=== PATIENT | female | born 1965 | race Caucasian/White ===

== ENCOUNTER 2021-01-31 13:47 | Emergency (ER) | payer OTHER, SELFPAY ==
[2021-01-31] VITALS (11 sets, daily range): BP systolic 116–120; BP diastolic 78; PULSE 61–79; RESP 17–25; TEMP 36.5; O2SAT 95–99
--- NOTE | 2021-01-31 13:51 | DI.RAD.S_ITS ---
PROCEDURE: XR CHEST 1V INDICATIONS: chest pain TECHNIQUE: One view of the chest was acquired. COMPARISON: None. FINDINGS: Surgical changes and devices: Left CT injectable port a catheter tip overlying the cavoatrial region. Lungs and pleura: No consolidation, pleural effusions or pneumothorax. 1.7 cm nodular density right lower lung zone. Mediastinum: Mediastinal contours appear normal. Heart size is normal. Bones and chest wall: No suspicious bony lesions. Overlying soft tissues appear unremarkable. IMPRESSION: 1. Nodular density in the right lower lung zone, which may reflect a nipple shadow versus pulmonary nodule. Consider repeat chest radiograph with nipple markers versus CT. Dictated by: Cesar Paris M.D. on 01/31/2021 at 14:30 Approved by: Cesar Paris M.D. on 01/31/2021 at 14:32
[2021-01-31 13:59] LABS: Add Manual Diff / Slide Review NO; Basophils Absolute Auto 100 /uL (0-100); Basophils Percent Auto 0.9 % (0-2); Eosinophils Absolute Auto 600 /uL (0-450); Eosinophils Percent Auto 8.6 % (2-4); Hematocrit 37.6 % (36-46); Hemoglobin 12.8 g/dL (12.0-16.0); Lymphocytes Absolute Auto 900 /uL (1100-4500); Mean Corpuscular Hemoglobin 33.4 PG (26-34); Mean Corpuscular Volume 98.2 fL (80-100); Monocytes Absolute Auto 500 /uL (0-900); Monocytes Percent Auto 7.1 % (3-14); Neutrophils Absolute Auto 5200 /uL (1500-7000); Neutrophils Percent Auto 71.4 % (50-75); Platelet Count 176 X10^3/uL (150-400); Red Blood Cell Count 3.82 X10^6/uL (4.0-5.2); White Blood Cell Count 7.3 X10^3/uL (4.5-11.0)
--- NOTE | 2021-01-31 14:05 | PC.NURSE ---
Blood sugar 71, patient still feels dizzy. Drinking apple juice and tolerating well
[2021-01-31 14:08] LABS: Alanine Aminotransferase 63 IU/L (<35); Albumin 4.4 g/dL (3.5-5.0); Albumin Globulin Ratio 1.6 (1.0-2.8); Alkaline Phosphatase 153 U/L (38-126); Aspartate Aminotransferase 61 IU/L (14-36); BUN Creatinine Ratio 16.7 (6-22); Bilirubin Total 0.7 mg/dL (0.2-1.3); Blood Urea Nitrogen 17 mg/dL (7-17); Calcium 9.5 mg/dL (8.4-10.2); Carbon Dioxide 30 mmol/L (22-32); Chloride 104 mmol/L (98-107); Creatine Kinase 147 U/L (30-135); Estimated Glomerular Filt Rate 56.1 mL/min (>60); Globulin 2.7 g/dL (1.7-4.1); Glucose 68 mg/dL (70-100); HEMOLYSIS < 15 (0-50); Lipase 69 U/L (23-300); Sodium 141 mmol/L (137-145); Total Protein 7.1 g/dL (6.3-8.2)
--- NOTE | 2021-01-31 14:10 | PC.NURSE ---
Patient received radiation this morning in [place] drove up to [employer] for work. Patient had not eaten, which states is not abnormal for her. Patient administered her fast acting insulin, felt sudden drop in blood sugar, while attempting to eat. Patient called 911, vomited excessively. Patient had a syncopal episode. Patient alert and oriented on arrival to ER, reports dizziness. Basal pump paused at this time.
[2021-01-31 14:20] LABS: Troponin I < 0.012 ng/mL (0.01-0.034)
--- NOTE | 2021-01-31 14:23 | ED.GENADULT ---
HPI - General Adult General Chief complaint: Diabetic Problem Stated complaint: Syncope Time Seen by Provider: 01/31/21 14:19 Source: patient and EMS Mode of arrival: EMS Limitations: no limitations History of Present Illness HPI narrative: This is a 55-year-old female comes emergency department with complaint of hypoglycemic episode. Patient had radiation earlier today. She has been receiving radiation for breast cancer. She has completed her chemotherapy couple months ago. She does receive an infusion Q 3 weeks for immunotherapy with Herceptin and Perjeta. She has a history of dyslipidemia, insulin-dependent diabetes that started during a prior . She uses a fasting acting insulin in her pump. Today she had given herself a bolus of insulin and ordered food had a local restaurant. While she was waiting she started to feel dizzy, nauseated and then obtained her tried to eat it but subsequently vomited and then passed out. She states she still feels a little dizzy. She denies headache, chest pain or shortness breath. She denies any nausea or vomiting currently. She is tolerating oral apple juice. She has not had any diarrhea or constipation. No dysuria, urgency or frequency. She has had a prior lumpectomy x2 on the right in 721. She has a port. 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 She denies tobacco, alcohol or illicit. Patient did turn off her insulin pump. With the medics she was 40 for her initial Accu-Chek, followed by a glucose of 100 and than 60. Related Data Allergies Allergy/AdvReac Type Severity Reaction Status Date / Time Sulfa (Sulfonamide Allergy Verified 01/31/21 13:51 Antibiotics) Review of Systems Review of Systems ROS Unobtainable: All systems reviewed & are unremarkable except as noted in HPI and below Exam Narrative Exam Narrative: GEN: well nourished, well appearing female, alert and oriented x 3, patient appears to be in mild distress. HEENT: Atraumatic, pupils are equal round reactive to light, extraocular movements are intact, nares are clear, throat is clear without any exudates, erythema, tonsillar enlargement or uvular deviation HEART: Regular rate and rhythm without murmur, clicks, rubs. Pulses are equal in upper and lower extremities. Port in place. LUNGS:Lungs clear to auscultation, no wheezes, rales, crackles, chest moves symmetrically ABD:bowel sounds normal, soft, non-tender, no guarding, rebound, rigidity, no masses noted, no hepatosplenomegaly, patient has insulin pump on her right lower abdomen. :No CVA tenderness MSCL: Non-tender, no muscle atrophy, muscles strength 5/5 upper and lower extremities, full range of motion NEURO:CN 2-12 intact, sensation normal SKIN: No rash, erythema or other skin changes. Initial Vital Signs Initial Vital Signs: Vital Signs Temperature 97.7 F 01/31/21 13:47 Pulse Rate 79 01/31/21 13:47 Respiratory Rate 18 01/31/21 13:47 Blood Pressure 120/78 01/31/21 13:47 Pulse Oximetry 99 01/31/21 13:47 Course Orders Ordered: ED Orders 01/31/21 13:51 XR chest 1V Stat Complete Blood Count AUTO DIFF Stat Comprehensive Metabolic Panel Stat Lipase Stat Troponin & CK Cardiac Panel Stat 01/31/21 14:05 EKG-12 Lead Stat 01/31/21 14:26 CT head/brain wo con Stat Discontinued Medications Sodium Chloride (Normal Saline 0.9%) 1,000 mls @ 1,000 mls/hr IV BOLUS PRN PRN Reason: Fluid replacement Last Infusion: 01/31/21 16:42 Dose: 0 mls/hr Documented by: Admin: 01/31/21 14:53 Dose: 1,000 mls/hr Documented by: FRIEDA Ondansetron HCl (Ondansetron 4 Mg/2 Ml Inj) 4 mg IV Q6HR PRN PRN Reason: Nausea And Vomiting Potassium Chloride (Potassium Chloride 20 Meq Tab) 40 meq PO NOW ONE Stop: 01/31/21 14:32 Last Admin: 01/31/21 14:53 Dose: 40 meq Documented by: FRIEDA Reevaluation(s) Reevaluation #1: Patient is feeling much better after fluids. Workup is appropriate. She has been tolerating oral liquid and food. She has restarted her pump and after an hour with her pump in place and even bolusing herself for an elevated sugar she has continued to be asymptomatic without any drops. We did review her chest x-ray findings as well as labs. All questions answered. Vital Signs Vital signs: Vital Signs - 8 hr 01/31/21 13:47 01/31/21 14:04 01/31/21 14:30 Temperature 97.7 F Pulse Rate 79 76 74 Respiratory Rate 18 25 H Blood Pressure 120/78 Pulse Oximetry 99 01/31/21 15:00 01/31/21 15:30 01/31/21 16:06 Temperature Pulse Rate 62 61 70 Respiratory Rate Blood Pressure Pulse Oximetry 96 99 01/31/21 16:30 01/31/21 17:00 01/31/21 17:30 Temperature Pulse Rate 74 78 75 Respiratory Rate Blood Pressure Pulse Oximetry 98 97 97 01/31/21 18:00 01/31/21 18:26 Temperature Pulse Rate 76 70 Respiratory Rate 17 Blood Pressure 116/78 Pulse Oximetry 95 99 Medical Decision Making Lab Data Result diagrams: 01/31/21 13:51 01/31/21 13:51 Labs: Lab Results 01/31/21 01/31/21 Range/Units 13:51 13:51 WBC 7.3 (4.5-11.0) X10^3/uL RBC 3.82 L (4.0-5.2) X10^6/uL Hgb 12.8 (12.0-16.0) g/dL Hct 37.6 (36-46) % MCV 98.2 (80-100) fL MCH 33.4 (26-34) PG MCHC 34.0 (30-36) % RDW 15.0 H (11.6-14.8) % Plt Count 176 (150-400) X10^3/uL Neut % (Auto) 71.4 (50-75) % Lymph % (Auto) 12.0 L (25-40) % [place] % (Auto) 7.1 (3-14) % Eos % (Auto) 8.6 H (2-4) % Baso % (Auto) 0.9 (0-2) % Neut # (Auto) 5200 (0302-2299) /uL Lymph # (Auto) 900 L (4868-3893) /uL [place] # (Auto) 500 (0-900) /uL Eos # (Auto) 600 H (0-450) /uL Baso # (Auto) 100 (0-100) /uL Sodium 141 (137-145) mmol/L Potassium 3.0 L (3.4-5.1) mmol/L Chloride 104 (98-107) mmol/L Carbon Dioxide 30 (22-32) mmol/L BUN 17 (7-17) mg/dL Creatinine 1.02 (0.52-1.04) mg/dL Estimated GFR 56.1 L (>60) mL/min BUN/Creatinine Ratio 16.7 (6-22) Glucose 68 L (70-100) mg/dL Calcium 9.5 (8.4-10.2) mg/dL Total Bilirubin 0.7 (0.2-1.3) mg/dL AST 61 H (14-36) IU/L ALT 63 H (<35) IU/L Alkaline Phosphatase 153 H (38-126) U/L Total Creatine Kinase 147 H (30-135) U/L CK-MB (CK-2) 0.97 (<2.37) ng/mL CK-MB (CK-2) Rel Index 0.7 L (1.5-5.0) % Troponin I < 0.012 (0.01-0.034) ng/mL Total Protein 7.1 (6.3-8.2) g/dL Albumin 4.4 (3.5-5.0) g/dL Globulin 2.7 (1.7-4.1) g/dL Albumin/Globulin Ratio 1.6 (1.0-2.8) Lipase 69 (23-300) U/L Point of Care Testing Glucose POC 88 Urine Dip Bedside Urine Glucose Negative Bedside Urine Bilirubin - Negative Bedside Urine Ketone - Negative Urine Specific [place] 1.015 Bedside Urine Occult Blood - Negative Bedside Urine pH 7.0 Bedside Urine Protein - Negative Bedside Urine Urobilinogen - Negative Bedside Urine Nitrite - Negative Bedside Urine Leukocytes - Negative Esterase Point of care testing: Point of Care Testing Glucose POC 88 Urine Dip Bedside Urine Glucose Negative Bedside Urine Bilirubin - Negative Bedside Urine Ketone - Negative Urine Specific [place] 1.015 Bedside Urine Occult Blood - Negative Bedside Urine pH 7.0 Bedside Urine Protein - Negative Bedside Urine Urobilinogen - Negative Bedside Urine Nitrite - Negative Bedside Urine Leukocytes - Negative Esterase Imaging Data CT scan - head: Radiologist's Impression: Leeann Gunn??55??F??1965 ? Allergy/Adv: Sulfa (Sulfonamide Antibiotics) (More??) Close Head CT (Signed) Antonia Joy - 01/31/21 Chest X-Ray (Signed) Cesar Paris - 01/31/21 Launch?Image [address] [address] [address] Scan Report Signed Patient: Leeann Gunn MR#: [id number] : 1965 Acct:[id number] Age/Sex: 55 / F Date of Service: 01/31/21 Loc: ED Accession Number: [id number] ?? Procedure: CT head/brain wo con Ordering Provider: Erinn Reyes D.O. PROCEDURE:? CT HEAD/BRAIN WO CON ? INDICATIONS:? dizziness, vomiting, hypoglycemi ? TECHNIQUE:? Noncontrast 4.5 mm thick angled axial sections acquired from the foramen magnum to the vertex, with coronal and sagittal reformats.? For radiation dose reduction, the following was used:? automated exposure control, adjustment of mA and/or kV according to patient size.? ? COMPARISON:? None. ? FINDINGS:? Image quality:? Excellent.? ? CSF spaces:? Basal cisterns are patent.? No extra-axial fluid collections.? Ventricles are normal in size and shape.? ? Brain:? No midline shift.? No intracranial masses or hemorrhage.? Blair-white matter interface is normal.? ? Skull and face:? Calvarium and visualized facial bones are intact, without suspicious lesions.? ? Sinuses:? Visualized sinuses and mastoids are clear.? ? IMPRESSION:? No acute intracranial disease process. ? ? Dictated by: Antonia Joy MD, PhD on 01/31/2021 at 15:22 ? ? Approved by: Antonia Joy MD, PhD on 01/31/2021 at 15:24?? Chest x-ray: Radiologist's Impression: Leeann Gunn? 55? F? 1965 ? ?? [address] [address]RLnb ReportSigned Patient: Shannan GunnR#: [id number]: 1965Acct:[id number]/Sex: 55 / FDate of Service: 01/31/21Loc: EDAccession Number: [id number]? ? Procedure: XR chest 1V Ordering Provider: Erinn Reyes D.O. PROCEDURE:? XR CHEST 1V ? INDICATIONS:? chest pain ? TECHNIQUE:? One view of the chest was acquired.? ? COMPARISON:? None. ? FINDINGS:? ? Surgical changes and devices:? Left CT injectable port a catheter tip overlying the cavoatrial region.? ? Lungs and pleura:? No consolidation, pleural effusions or pneumothorax.? 1.7 cm nodular density right lower lung zone. ? Mediastinum:? Mediastinal contours appear normal.? Heart size is normal.? ? Bones and chest wall:? No suspicious bony lesions.? Overlying soft tissues appear unremarkable.? ? IMPRESSION:? 1. Nodular density in the right lower lung zone, which may reflect a nipple shadow versus pulmonary nodule.? Consider repeat chest radiograph with nipple markers versus CT. ? Dictated by: Cesar Paris M.D. on 01/31/2021 at 14:30? ?? Approved by: Cesar Paris M.D. on 01/31/2021 at 14:32?? ECG Data Attestation: I personally reviewed and interpreted this ECG as follows: Interpretation: Sinus rhythm rate of 70 3p are 174 QRS of 90 QTC of 480. No acute ST elevation depression noted. MDM Narrative Medical decision making narrative: This is a 55-year-old female with known breast cancer who is currently receiving radiation and immunotherapy infusions q. 3 weeks. She comes department with complaint of hypoglycemic episode. Patient had vomiting and syncope while at a drive in. She had bolused herself with her fast acting insulin but states that she seemed to become symptomatic before she could eat any food. She has been tolerating orals here. Her labs do not show any clear cause. There is a possible pulmonary nodule versus nipple shadow on her x-ray imaging. Discussed with patient she can follow up primary care for repeat imaging. Patient sees her oncology team tomorrow. She has had multiple scans and we will send disc of her images so they can evaluate and compare her imaging from today to her imaging that she had already has at baseline. During her stay her sugars have been stable she has been as high as 180 with no hypoglycemic episodes. She is tolerating orals and feels much better. Discharge Plan Departure Patient Disposition: Home Clinical Impression: Syncope, Hypoglycemia, Hypokalemia Instructions: DI for Hypoglycemia Activity Restrictions/Additional Instructions: Continue to monitor your sugars regularly and her pump to see if you have any additional events. You may continue home medications as prescribed. Your chest x-ray today shows a possible pulmonary nodule versus shadowing I recommend having repeat x-ray or CT imaging with your primary care or oncology team if you have not had any recently. Please return for recurrent episodes, lightheadedness or passing out, chest pain or shortness of breath, persistent vomiting, black or bloody stools, new swelling in her extremities or other new or concerning symptoms.
[2021-01-31 14:24] LABS: CKMB % Relative Index 0.7 % (1.5-5.0); Creatine Kinase MB 0.97 ng/mL (<2.37)
--- NOTE | 2021-01-31 14:26 | DI.CT.S_ITS ---
PROCEDURE: CT HEAD/BRAIN WO CON INDICATIONS: dizziness, vomiting, hypoglycemi TECHNIQUE: Noncontrast 4.5 mm thick angled axial sections acquired from the foramen magnum to the vertex, with coronal and sagittal reformats. For radiation dose reduction, the following was used: automated exposure control, adjustment of mA and/or kV according to patient size. COMPARISON: None. FINDINGS: Image quality: Excellent. CSF spaces: Basal cisterns are patent. No extra-axial fluid collections. Ventricles are normal in size and shape. Brain: No midline shift. No intracranial masses or hemorrhage. Blair-white matter interface is normal. Skull and face: Calvarium and visualized facial bones are intact, without suspicious lesions. Sinuses: Visualized sinuses and mastoids are clear. IMPRESSION: No acute intracranial disease process. Dictated by: Antonia Joy MD, PhD on 01/31/2021 at 15:22 Approved by: Antonia Joy MD, PhD on 01/31/2021 at 15:24
[2021-01-31] MEDS: POTASSIUM CHLORIDE 20 MEQ TAB 40 MEQ PO (14:53)
[2021-01-31] MEDS: SODIUM CHLORIDE 0.9% 1,000 ML 1000 ML IV (14:53)
--- NOTE | 2021-01-31 16:29 | PC.NURSE ---
Patient insulin pump showed 135 blood glucose, tolerated topher crackers, peanutbutter, cheese and saltines. Treated blood sugar with 1.5units of basal insulin. Dr Eric schofield.
== END 2021-01-31 18:27 | disposition home or self-care (01) ==
PROVIDERS: Emergency Provider Emergency Medicine
DX: E11.649 Type 2 diabetes mellitus with hypoglycemia without coma (principal); E87.6 Hypokalemia; R55 Syncope and collapse; Z79.4 Long term (current) use of insulin; Z96.41 Presence of insulin pump (external) (internal)
CPT/HCPCS: 36415; 70450; 71045; 80053; 81003; 82550; 82553; 82962; 83690; 84484; 85025; 93005; 93010; 96360; 96361; 99284